=== PATIENT | male | born 1935 | race Caucasian/White ===

== ENCOUNTER 2016-08-11 11:17 | Emergency (ER) | payer OTHER ==
[~2016-08-11] VITALS: Ht 165.1 cm; Wt 82.9 kg
[~2016-08-11 11:17] MED LIST: ASPEC325 PO; CLB200 PO; LISI5TAB3 PO; LRT5 PO; METO100T7 PO; NTRGSL/4 UT
[2016-08-11 11:36] VITALS: Ht 165.1 cm; Wt 82.9 kg
[2016-08-11] MEDS ORDERED: MoRPHine SULFATE 4 MG/ML 1 ML CARP\\VIAL IV STA (12:25)
[2016-08-11] MEDS ORDERED: NITROGLYCERIN OINT 2% 1GM PACKET EXT STA (12:25)
[2016-08-11] MEDS ORDERED: ONDANSETRON INJ 2 MG/ML 2 ML VIAL IV STA (12:25)
[2016-08-11 12:30] LABS: URINE APPEARANCE CLEAR (CLEAR); URINE BILIRUBIN NEG (NEG); URINE COLOR YELLOW; URINE EPITHELIAL CELL AUTO 0-5 /lpf (0-5); URINE NITRITE NEG (NEG); URINE PH 6.5 (4.5-7.5); URINE SPECIFIC GRAVITY 1.003 (1.000-1.030); UROBILINOGEN NEG (NEG); ZZUR CULT IF INDIC CLEAN CATCH NO
[2016-08-11 12:36] LABS: MANUAL MICROSCOPIC REQUIRED? NO; REVIEW REQ? NO
[2016-08-11 12:39] LABS: BASO % 0.3 %; BASO ABS # 0.02 K/uL (0-0.2); COMPLETE YES; EOS % 1.1 %; HEMATOCRIT 35.1 % (42-52); IG% 0.3 %; LYMPH % 17.4 %; LYMPH ABS # 1.13 K/uL (1.2-3.4); MEAN CELL VOLUME 87.8 fL (80-100); MEAN CORPUSCULAR HEMOGLOBIN 29.8 pg (25-34); MEAN CORPUSCULAR HGB CONC 33.9 g/dl (32-36); MEAN PLATELET VOLUME 9.5 fL (7.4-10.4); MONO % 11.2 %; NEUT % 69.7 %; PLATELET COUNT 187 K/uL (130-400); WHITE BLOOD COUNT 6.51 K/uL (4.8-10.8)
[2016-08-11] MEDS ORDERED: NITROGLYCERIN OINT 2% 1GM PACKET ONE (12:40)
--- NOTE | 2016-08-11 12:41 | EMERGENCY ROOM VISIT NOTE ---
History First contact with patient: 12:13 (Brian Vargas PA-C) First contact with patient: 12:13 (Oren Flores M.D.) Chief Complaint: ABDOMINAL PAIN Stated Complaint: ABD PAIN History of Present Illness The patient is a 81 year old male who presents to the Emergency Room via private vehicle accompanied by with complaints of "abdominal pain". The patient states that he began with left upper/substernal abdominal pain on Monday of this week that was postprandial. He states that it is worse with ingestion of food, and is now on the sternal region. He notes he does have a history of heart vessel bypass, which was performed 2009 [facility]. He also notes that he has had a sensation of congestion in the ears, and was to see his family doctor Monday as well as yesterday for follow-up who recommended Mucinex. The patient also notes that he will have a lump like sensation in the epigastric region that is reducible. He currently would like something for pain, noting that it is a gnawing in nature. His blood pressure is also elevated, but he notes he took his blood pressure medication this morning. He denies any chest pain, shortness of breath, lower abdominal pain. (Brian Vargas PA-C) Review of Systems A complete 10-point Review of Systems was discussed with the patient, with pertinent positives and negatives listed in the History of Present Illness. All remaining Review of Systems questions can be considered negative unless otherwise specified. (Brian Vargas PA-C) Past Medical/Surgical History Medical Problems: (1) Localized, primary osteoarthritis of the lower leg (Oren Flores M.D.) Family History Diabetes, heart disease, cancer. (Brian Vargas PA-C) Social History Smoking Status: Former Smoker Social History: Patient lives at home with spouse, denies alcohol and tobacco use. (Brian Vargas PA-C) Current/Historical Medications Scheduled Aspirin (Aspir-81), 81 MG PO DAILY Lisinopril (Zestril), 10 MG PO BID Metoprolol Succ (Toprol Xl) (Toprol-Xl), 50 MG PO DAILY Pravastatin (Pravachol ), 20 MG PO QPM Scheduled PRN Ranitidine (Zantac), 150 MG PO BID PRN for UPSET STOMACH Allergies Coded Allergies: No Known Allergies (Verified Allergy, NONE, 11/15/08) Physical Exam Vital Signs Date Time Temp Pulse Resp B/P Pulse Ox O2 Delivery O2 Flow Rate FiO2 08/11/16 17:07 37.0 60 16 175/85 98 08/11/16 17:05 60 16 175/85 98 Room Air 08/11/16 16:27 60 16 181/87 98 Room Air 2.0 08/11/16 16:01 59 16 178/85 98 Room Air 2.0 08/11/16 15:12 61 18 178/89 96 Room Air 08/11/16 15:08 95 Nasal Cannula 2.0 08/11/16 14:13 60 18 188/116 95 Room Air 08/11/16 13:14 62 08/11/16 12:53 62 18 165/96 98 Nasal Cannula 2.0 08/11/16 11:36 37.0 64 20 186/81 97 Room Air (Oren Flores M.D.) Physical Exam VITAL SIGNS - Vital signs and nursing notes were reviewed. The patient currently is afebrile, he is hypertensive at 186/81, he is non-tachycardic and saturating well on room air 97%. GENERAL -81-year-old male appearing his stated age who is in no acute distress. The patient is lying in bed comfortably. He is nontoxic in appearance. Communicates well with provider and answers questions appropriately. SKIN - Without rashes. No petechial rashes. HEAD - NC/AT. EYES -Sclera anicteric. Palpebral conjunctiva pink and moist with no injection noted. EARS - No deformities of external structures noted on gross examination bilaterally. No pain elicited with palpation of the tragus bilaterally. External auditory canals without discharge or otorrhea. Tympanic membranes pearly [place] without retraction or bulging. No fluid or purulent material visualized behind the TM. Handle of malleus, umbo, cone of light, pars tensa/ flaccid all easily visualized. NOSE - Midline and without cyanosis. No epistaxis or purulent drainage noted. Septum midline without deviation or septal hematoma noted. MOUTH/OROPHARYNX - Without perioral cyanosis. Buccal mucosa pink and moist and without leukoplakia. Tongue midline with equal elevation of palate bilaterally. No tonsillar hypertrophy, erythema, or exudates noted. Fair dentition noted. NECK - Neck with FROM. Supple to palpation. No lymphadenopathy noted. No nuchal rigidity. LUNGS - Chest wall symmetric without accessory muscle use, intercostals retractions, or central cyanosis. Normal vesicular breath sounds CTA B/L. No wheezes, rales, or rhonchi appreciated. CARDIAC - RRR with S1/S2. No murmur, rubs, or gallops appreciated. ABDOMEN - Abdominal contour without pulsations or visible masses. BS normoactive all four quadrants. There is substernal/left upper quadrant abdominal tenderness upon palpation. No palpable masses, hepatosplenomegaly, or ascites noted. EXTREMITIES - No clubbing or peripheral cyanosis. No pretibial edema present. + 5/5 strength noted in UE/LE bilaterally. NEUROLOGIC - Cranial nerves II through XII grossly intact. Sensory intact to light touch throughout. PSYCH - A&Ox3 and cooperates fully with examiner. Pt is very pleasant and interacts well with examiner. After verifying consent, rectal exam was unremarkable. Hemoccult negative. (Brian Vargas, COURTNEY) Medical Decision & Procedures ER Provider Diagnostic Interpretation: CHEST ONE VIEW PORTABLE CLINICAL HISTORY: Chest pain dyspnea COMPARISON STUDY: 10/11/2011 FINDINGS: Mild cardiomegaly. Prior median sternotomy. Diaphragms smooth. Lungs are clear. IMPRESSION: Mild cardiomegaly. Otherwise negative study Electronically signed by: Jeremy Hron M.D. 08/11/2016 12:59 PM Dictated Date/Time: 08/11/2016 12:58 PM ABDOMEN AND PELVIS CT WITH IV CONTRAST CT DOSE: 743.60 mGycm HISTORY: Pain. Nausea. Left upper, upper quadrant abdominal pain, worse with eating TECHNIQUE: Multiaxial CT images of the abdomen and pelvis were performed following the use of intravenous contrast. COMPARISON STUDY: None. FINDINGS: Lung bases are clear. Several hepatic microcysts are present. Several small gallstones are present within the region of the gallbladder neck. Possible mild gastric wall thickening versus technical lack of distention. Very small hiatal hernia. Spleen is uniform. Bowel pattern within the abdomen and pelvis is nonobstructive. No significant abdominal pelvic or inguinal adenopathy. No free fluid within the pelvic cul-de-sac. Bladder is midline. Small bilateral renal calcifications which are nonobstructive. IMPRESSION: 1. Several small gallstones in the region of the gallbladder neck. 2. Several punctate nonobstructing renal calcifications. 3. Mild gastric wall thickening versus technical lack of distention. 4. Study is otherwise negative. Electronically signed by: Jeremy Horn M.D. 08/11/2016 2:14 PM Dictated Date/Time: 08/11/2016 2:09 PM (Brian Vargas, COURTNEY) Laboratory Results 08/11/16 12:15 Red Blood Count 4.00, Mean Corpuscular Volume 87.8, Mean Corpuscular Hemoglobin 29.8, Mean Corpuscular Hemoglobin Concent 33.9, Mean Platelet Volume 9.5, Neutrophils (%) (Auto) 69.7, Lymphocytes (%) (Auto) 17.4, Monocytes (%) (Auto) 11.2, Eosinophils (%) (Auto) 1.1, Basophils (%) (Auto) 0.3, Neutrophils # (Auto ) 4.54, Lymphocytes # (Auto) 1.13, Monocytes # (Auto) 0.73, Eosinophils # (Auto ) 0.07, Basophils # (Auto) 0.02 08/11/16 12:15 Test 08/11/16 11:44 08/11/16 12:15 08/11/16 15:45 Urine Color YELLOW Urine Appearance CLEAR (CLEAR) Urine pH 6.5 (4.5-7.5) Urine Specific [place] 1.003 (1.000-1.030) Urine Protein NEG (NEG) Urine Glucose (UA) NEG (NEG) Urine Ketones NEG (NEG) Urine Occult Blood TRACE (NEG) Urine Nitrite NEG (NEG) Urine Bilirubin NEG (NEG) Urine Urobilinogen NEG (NEG) Urine Leukocyte Esterase NEG (NEG) Urine WBC (Auto) 0 /hpf (0-5) Urine RBC (Auto) 0-4 /hpf (0-4) Urine Hyaline Casts (Auto) 0 /lpf (0-5) Urine Epithelial Cells (Auto) 0-5 /lpf (0-5) Urine Bacteria (Auto) NEG (NEG) White Blood Count 6.51 K/uL (4.8-10.8) Red Blood Count 4.00 M/uL (4.7-6.1) Hemoglobin 11.9 g/dL (14.0-18.0) Hematocrit 35.1 % (42-52) Mean Corpuscular Volume 87.8 fL (80-100) Mean Corpuscular Hemoglobin 29.8 pg (25-34) Mean Corpuscular Hemoglobin Concent 33.9 g/dl (32-36) Platelet Count 187 K/uL (130-400) Mean Platelet Volume 9.5 fL (7.4-10.4) Neutrophils (%) (Auto) 69.7 % Lymphocytes (%) (Auto) 17.4 % Monocytes (%) (Auto) 11.2 % Eosinophils (%) (Auto) 1.1 % Basophils (%) (Auto) 0.3 % Neutrophils # (Auto) 4.54 K/uL (1.4-6.5) Lymphocytes # (Auto) 1.13 K/uL (1.2-3.4) Monocytes # (Auto) 0.73 K/uL (0.11-0.59) Eosinophils # (Auto) 0.07 K/uL (0-0.5) Basophils # (Auto) 0.02 K/uL (0-0.2) RDW Standard Deviation 45.5 fL (36.4-46.3) RDW Coefficient of Variation 14.0 % (11.5-14.5) Immature Granulocyte % (Auto) 0.3 % Immature Granulocyte # (Auto) 0.02 K/uL (0.00-0.02) Prothrombin Time 11.5 SECONDS (9.0-12.0) Prothromb Time International Ratio 1.1 (0.9-1.1) Activated Partial Thromboplast Time 34.6 SECONDS (21.0-31.0) Partial Thromboplastin Ratio 1.3 Anion Gap 11.0 mmol/L (3-11) Est Creatinine Clear Calc Drug Dose 37.6 ml/min Estimated GFR () 49.5 Estimated GFR (Non- 42.7 BUN/Creatinine Ratio 13.9 (10-20) Calcium Level 9.3 mg/dl (8.5-10.1) Magnesium Level 2.4 mg/dl (1.8-2.4) Total Bilirubin 0.6 mg/dl (0.2-1) Aspartate Amino Transf (AST/SGOT) 18 U/L (15-37) Alanine Aminotransferase (ALT/SGPT) 16 U/L (12-78) Alkaline Phosphatase 74 U/L (45-117) Total Protein 7.6 gm/dl (6.4-8.2) Albumin 4.0 gm/dl (3.4-5.0) Globulin 3.6 gm/dl (2.5-4.0) Albumin/Globulin Ratio 1.1 (0.9-2) Lipase 155 U/L (73-393) Chemistry Specimen Hemolysis Bedside Troponin I 0.000 ng/ml (0-0.045) (Oren Flores M.D.) Medications Administered Medications (Trade) Dose Ordered Sig/Richard Route Start Time Stop Time Status Last Admin Dose Admin Morphine Sulfate (MoRPHine SULFATE INJ) 4 mg NOW STAT IV 08/11/16 12:25 08/11/16 12:30 DC 08/11/16 12:46 4 MG Ondansetron HCl (Zofran Inj) 4 mg NOW STAT IV 08/11/16 12:25 08/11/16 12:30 DC 08/11/16 12:46 4 MG Nitroglycerin (Nitroglycerin 2% Oint) 0.5 inch NOW STAT EXT 08/11/16 12:25 08/11/16 12:30 DC 08/11/16 12:46 0.5 INCH Morphine Sulfate (MoRPHine SULFATE INJ) 2 mg NOW STAT IV 08/11/16 13:55 08/11/16 13:57 DC 08/11/16 14:11 2 MG Oxycodone HCl (Roxicodone Immediate Rel 5MG Home Pack) 1 homepack UD STAT PO 08/11/16 16:27 08/11/16 16:28 DC 08/11/16 16:47 1 HOMEPACK (rOen Flores M.D.) Medical Decision Patient was seen and evaluated as above. After obtaining a thorough history and physical examination, the above workup was initiated. There was concern for abdominal etiologies, as well as cardiac particularly given the patient's past medical history. EKG performed today revealed normal sinus rhythm, with rebound mayelin block and when compared to EKG 2011, no significant change was noted. Today's EKG reveals rate of 70 bpm, without ectopy or ischemic change. CBC reveals no leukocytosis, slight anemia noted 11.9. A PTT was elevated at 34.6, CMP reveals BUN elevated and creatinine elevated, no electrolyte, or kidney abnormality. Point care troponin was negative 2, lipase was within normal limits. Urine reveals trace occult blood, otherwise unremarkable. Chest x-ray reveals mild cardiomegaly. CT of the abdomen and pelvis was obtained. Gallstones were noted. Patient was not tender in the right upper quadrant. Given the patient's past medical history of gastric ulcer, and recent NSAID use I do believe he likely has either a gastric ulcer, or gastritis. Patient was also personally evaluated by my attending. The patient will be discharged with Zantac, of which she already takes but only when necessary. They note they have inadequate supply, therefore a prescription will be written. He will take this twice daily. He was also given a short term supply of OxyIR for his pain. He was offered admission to the hospital but declined. 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 I do with this is reasonable, the patient is to have close follow-up with gastroenterology of which she is provided number to call first thing tomorrow as well as his family doctor regarding today's visit. They're fully educated upon the findings, particularly he was noted to be hypertensive but slightly decreased throughout his stay. He was experiencing abdominal pain which could correlate with this. He was thoroughly educated upon the risks of hypertension and is to follow up with his family doctor. He does currently take medication for this they were educated on these findings, were educated upon worrisome symptoms which to return, had questions answered prior to discharge, and was discharged home in good condition. In the evaluation and treatment of this patient following differential diagnoses were entertained: ACS, PE, dissection, gastritis, mesenteric ischemia , among others. (Brian Vargas, BLANCAC) Impression Primary Impression: Epigastric pain Additional Impression: Abdominal pain Departure Information Dispostion Home / Self-Care Condition GOOD Referrals Sergio Jiménez D.O. (PCP) Justin Savage M.D. Patient Instructions My [facility] Additional Instructions You have been treated in the Emergency Department your Abdominal Pain. Laboratory results and imaging studies have ruled out any emergent causes for your abdominal pain which would warrant admission or surgery. You have received pain medications that make it illegal for you to drive today or operate machinery. Your kidney function today was slightly abnormal, and your blood pressure was elevated. Please have these repeated with your family doctor. Please take the Zantac previously prescribed twice daily. You have been prescribed Oxy IR to be used for pain control. This is a narcotic medication. You cannot drive or consume alcohol while on this medicine. This medicine should only be used for pain that cannot be controlled with over-the- counter pain medicines. For pain control, you can use the following [id number] medicines (if >12 yo): - Regular strength (325mg/tab) Tylenol (acetaminophen) 2 tabs every 4-6 hours as needed. Do not exceed 12 tablets in a 24 hour period. Avoid taking more than 4 grams (4000 mg) of Tylenol per day. This includes any other sources of acetaminophen you may take on a regular basis. NO IBUPROFEN OR NSAIDS!! Drink plenty of water and stay well hydrated. As with any trip to the Emergency Department, you should follow-up with your Primary Care Provider from today's visit. You've the provided number for a GI specialist. Please call them first thing tomorrow morning. (Dr. Savage) Return to the emergency department if your symptoms persist despite treatment plan outlined above or if the following symptoms occur: increased fevers, chills , worsening nausea/vomiting, blood in your stool or urine. Problem Qualifiers Additional Impression: Abdominal pain Abdominal location: epigastric Qualified Codes: R10.13 - Epigastric pain
[2016-08-11] MEDS ORDERED: OPTIRAY 320 IV PRN (12:45)
[2016-08-11 12:50] LABS: INR 1.1 (0.9-1.1); PARTIAL THROMBOPLASTIN RATIO 1.3; PROTHROMBIN TIME (PATIENT) 11.5 SECONDS (9.0-12.0)
--- NOTE | 2016-08-11 13:01 | DIAGNOSTIC IMAGING REPORT ---
CHEST ONE VIEW PORTABLE CLINICAL HISTORY: Chest pain dyspnea COMPARISON STUDY: 10/11/2011 FINDINGS: Mild cardiomegaly. Prior median sternotomy. Diaphragms smooth. Lungs are clear. IMPRESSION: Mild cardiomegaly. Otherwise negative study Electronically signed by: Jeremy Horn M.D. 08/11/2016 12:59 PM Dictated Date/Time: 08/11/2016 12:58 PM
[2016-08-11 13:06] LABS: ALB/GLOB RATIO 1.1 (0.9-2); BUN/CREATININE RATIO 13.9 (10-20); CALCIUM 9.3 mg/dl (8.5-10.1); CREATININE 1.5 mg/dl (0.60-1.40); MAGNESIUM 2.4 mg/dl (1.8-2.4); POTASSIUM 4.2 mmol/L (3.5-5.1)
[2016-08-11] MEDS ORDERED: ZNTT/150 PO (13:19)
[2016-08-11] MEDS ORDERED: LISI-461 PO (13:21)
[2016-08-11] MEDS ORDERED: METO50TA7 PO (13:21)
[2016-08-11] MEDS ORDERED: PRAV20TA PO (13:21)
[2016-08-11] MEDS ORDERED: ASPI-232 PO (13:21)
[2016-08-11] MEDS ORDERED: MoRPHine SULFATE 2 MG/ML CARP IV STA (13:55)
--- NOTE | 2016-08-11 14:15 | DIAGNOSTIC IMAGING REPORT ---
ABDOMEN AND PELVIS CT WITH IV CONTRAST CT DOSE: 743.60 mGycm HISTORY: Pain. Nausea. Left upper, upper quadrant abdominal pain, worse with eating TECHNIQUE: Multiaxial CT images of the abdomen and pelvis were performed following the use of intravenous contrast. COMPARISON STUDY: None. FINDINGS: Lung bases are clear. Several hepatic microcysts are present. Several small gallstones are present within the region of the gallbladder neck. Possible mild gastric wall thickening versus technical lack of distention. Very small hiatal hernia. Spleen is uniform. Bowel pattern within the abdomen and pelvis is nonobstructive. No significant abdominal pelvic or inguinal adenopathy. No free fluid within the pelvic cul-de-sac. Bladder is midline. Small bilateral renal calcifications which are nonobstructive. IMPRESSION: 1. Several small gallstones in the region of the gallbladder neck. 2. Several punctate nonobstructing renal calcifications. 3. Mild gastric wall thickening versus technical lack of distention. 4. Study is otherwise negative. Electronically signed by: Jeremy Horn M.D. 08/11/2016 2:14 PM Dictated Date/Time: 08/11/2016 2:09 PM
[2016-08-11 15:08] VITALS: O2SAT 95
[2016-08-11] MEDS ORDERED: OXYCODONE IR HOME PACK PO STA (16:27)
--- NOTE | 2016-08-11 16:34 | EMERGENCY ROOM VISIT NOTE ---
ED Visit Note First contact with patient: 12:13 81-year-old male with mid abdominal pain was fully evaluated by Brian Chew. The patient's prior history of ulcer disease. Imaging studies do reveal gallbladder stones but he is nontender over the right upper quadrant. The patient most likely has some gastritis or peptic/gastric ulcer disease. The patient will be maintained on ranitidine. He may need a proton pump inhibitor. The patient will need to be followed by family physician possibly gastroenterology.
[2016-08-11 17:07] VITALS: BP 175/85; PULSE 60; TEMP 37; O2SAT 98
== END 2016-08-11 17:08 | disposition home or self-care (01) ==
LOC: C.EDB 11:18
DX: R10.13 Epigastric pain (principal); R10.9 Unspecified abdominal pain; M19.90 Unspecified osteoarthritis, unspecified site; Z79.82 Long term (current) use of aspirin; Z83.3 Family history of diabetes mellitus; Z82.49 Family history of ischemic heart disease and other diseases of the circulatory system; Z87.891 Personal history of nicotine dependence

== ENCOUNTER 2016-08-14 08:24 | Emergency (ER) | payer OTHER ==
[~2016-08-14] VITALS: Ht 165.1 cm; Wt 80.3 kg
[~2016-08-14 08:24] MED LIST changes: -ASPEC325 PO; +ASPI-232 PO; -CLB200 PO; +LISI-461 PO; -LISI5TAB3 PO; -LRT5 PO; -METO100T7 PO; +METO50TA7 PO; -NTRGSL/4 UT; +PRAV20TA PO; +ZNTT/150 PO
[2016-08-14 08:27] VITALS: TEMP 36.5; Ht 165.1 cm; Wt 80.3 kg
[2016-08-14] MEDS ORDERED: SODIUM CHLORIDE 0.9% 1000ML 1,000 ML IV STA (08:37)
--- NOTE | 2016-08-14 08:54 | DIAGNOSTIC IMAGING REPORT ---
SINGLE VIEW CHEST CLINICAL HISTORY: Weakness. Change in mental status. FINDINGS: An AP, portable, upright chest radiograph is compared to study dated 08/11/2016. The examination is degraded by portable technique and apical lordotic positioning. The patient is status post midline sternotomy. The heart is enlarged and there is atherosclerotic calcification of the thoracic aorta. The pulmonary vasculature is noncongested. The lungs and pleural spaces are clear. No pneumothorax is seen. The skeletal structures are osteopenic. Degenerative changes noted throughout the thoracic spine. IMPRESSION: Cardiomegaly with no acute cardiopulmonary abnormality. No significant change from 08/11/2016. Electronically signed by: Juan Carlos Sims M.D. 08/14/2016 8:53 AM Dictated Date/Time: 08/14/2016 8:52 AM
[2016-08-14 09:18] LABS: BASO % 0.3 %; BASO ABS # 0.02 K/uL (0-0.2); COMPLETE YES; EOS % 2.7 %; HEMATOCRIT 37.4 % (42-52); IG% 0.5 %; LYMPH % 13.7 %; LYMPH ABS # 0.87 K/uL (1.2-3.4); MEAN CELL VOLUME 88.6 fL (80-100); MEAN CORPUSCULAR HEMOGLOBIN 29.4 pg (25-34); MEAN CORPUSCULAR HGB CONC 33.2 g/dl (32-36); MONO % 10.6 %; NEUT % 72.2 %; PLATELET COUNT 181 K/uL (130-400); RED BLOOD COUNT 4.22 M/uL (4.7-6.1); WHITE BLOOD COUNT 6.33 K/uL (4.8-10.8)
[2016-08-14 09:31] LABS: INR 1.1 (0.9-1.1); PARTIAL THROMBOPLASTIN RATIO 1.3; PROTHROMBIN TIME (PATIENT) 11.4 SECONDS (9.0-12.0)
[2016-08-14 09:37] LABS: ALT/SGPT 15 U/L (12-78); BLOOD UREA NITROGEN 20 mg/dl (7-18); BUN/CREATININE RATIO 13.3 (10-20); CALCIUM 9.5 mg/dl (8.5-10.1); CARBON DIOXIDE 25 mmol/L (21-32); CHLORIDE 103 mmol/L (98-107); GLUCOSE 100 mg/dl (70-99); MAGNESIUM 2.7 mg/dl (1.8-2.4); POTASSIUM 4.4 mmol/L (3.5-5.1); SODIUM 138 mmol/L (136-145)
[2016-08-14 09:45] LABS: ALKALINE PHOSPHATASE 69 U/L (45-117); AST/SGOT 13 U/L (15-37); CKMB/CK RATIO 2.8 (0-3.0)
[2016-08-14 10:09] VITALS: O2SAT 98
--- NOTE | 2016-08-14 10:38 | EMERGENCY ROOM VISIT NOTE ---
History Report prepared by Shorty: Heidi Cancino Under the Supervision of: Dr. Gurdeep Dotson D.O. First contact with patient: 08:33 Chief Complaint: ABDOMINAL PAIN Stated Complaint: BLEEDING ULCER Nursing Triage Summary: Triage Note: Pt reports he feels weak and dizzy. pt reports "i think i have a bleeding ulcer, i was here last week." pt reports he has blood in his stool since yesterday." History of Present Illness The patient is a 81 year old male who presents to the Emergency Room with complaints of episodic black stool since yesterday. He also complains of dizziness. He has not lost consciousness. The patient was in the emergency room 3 days ago for abdominal pain and was discharged after an unrevealing work-up. He was treated with Morphine in the ED and was sent home with an Oxycodone homepack. The patient states that he was slightly constipated until yesterday when he had a large bowel movement after taking Milk of Magnesia. He was concerned that he had a bleeding ulcer because his stool was black, as he has had bleeding gastric ulcers in the past. Since then, he has been feeling dizzy. Per patient's , he did take Pepto Bismol 2 days ago. He does not take iron supplements. Denies abdominal pain or other complaints. He takes baby aspirin. Source of History: patient Onset: yesterday Position: other (GI) Quality: other (black) Timing: other (episodic) Associated Symptoms: No LOC, No abdominal pain Note: Other symptoms: dizziness Review of Systems See HPI for pertinent positives & negatives. A total of 10 systems reviewed and were otherwise negative. Past Medical & Surgical Medical Problems: (1) Localized, primary osteoarthritis of the lower leg Family History Noncontributory secondary to age. Social History Smoking Status: Never Smoker Marital Status: Housing Status: lives with significant other Occupation Status: retired Current/Historical Medications Scheduled Aspirin (Aspir-81), 81 MG PO DAILY Lisinopril (Zestril), 10 MG PO BID Metoprolol Succ (Toprol Xl) (Toprol-Xl), 50 MG PO DAILY Pravastatin (Pravachol ), 20 MG PO QPM Scheduled PRN Ranitidine (Zantac), 150 MG PO BID PRN for UPSET STOMACH Allergies Coded Allergies: No Known Allergies (Verified , NONE, 08/14/16) Physical Exam Vital Signs Date Time Temp Pulse Resp B/P Pulse Ox O2 Delivery O2 Flow Rate FiO2 08/14/16 10:09 65 17 184/96 98 Room Air 08/14/16 09:20 69 16 177/128 71 173/92 73 155/90 08/14/16 09:01 58 16 150/59 98 Room Air 08/14/16 08:59 72 08/14/16 08:59 59 08/14/16 08:27 36.5 72 18 168/82 97 Room Air Physical Exam CONSTITUTIONAL/VITAL SIGNS: Reviewed / noted above. GENERAL: Non-toxic in appearance. INTEGUMENTARY: Warm, dry, and Dante. HEAD: Normocephalic. EYES: without scleral icterus or trauma. ENT/OROPHARYNX: clear and moist. LYMPHADENOPATHY/NECK: Is supple without lymphadenopathy or meningismus. RESPIRATORY: Lungs clear and equal. CARDIOVASCULAR: Regular rate and rhythm. GI/ABDOMEN: Soft and nontender. No organomegaly or pulsatile mass. No rebound or guarding. Normal bowel sounds. RECTAL: Guaiac negative brown stool. EXTREMITIES: Warm and well perfused. BACK: No CVA tenderness. NEUROLOGICAL: Intact without focal deficits. PSYCHIATRIC: normal affect. MUSCULOSKELETAL: Normally developed with good muscle tone. Medical Decision & Procedures ER Provider Diagnostic Interpretation: Radiology results as stated below per my review and radiologist interpretation: SINGLE VIEW CHEST CLINICAL HISTORY: Weakness. Change in mental status. FINDINGS: An AP, portable, upright chest radiograph is compared to study dated 08/11/2016. The examination is degraded by portable technique and apical lordotic positioning. The patient is status post midline sternotomy. The heart is enlarged and there is atherosclerotic calcification of the thoracic aorta. The pulmonary vasculature is noncongested. The lungs and pleural spaces are clear. No pneumothorax is seen. The skeletal structures are osteopenic. Degenerative changes noted throughout the thoracic spine. IMPRESSION: Cardiomegaly with no acute cardiopulmonary abnormality. No significant change from 08/11/2016. Electronically signed by: Juan Carlos Sims M.D. 08/14/2016 8:53 AM Dictated Date/Time: 08/14/2016 8:52 AM Laboratory Results 08/14/16 08:50 Red Blood Count 4.22, Mean Corpuscular Volume 88.6, Mean Corpuscular Hemoglobin 29.4, Mean Corpuscular Hemoglobin Concent 33.2, Mean Platelet Volume 9.0, Neutrophils (%) (Auto) 72.2, Lymphocytes (%) (Auto) 13.7, Monocytes (%) (Auto) 10.6, Eosinophils (%) (Auto) 2.7, Basophils (%) (Auto) 0.3, Neutrophils # (Auto ) 4.57, Lymphocytes # (Auto) 0.87, Monocytes # (Auto) 0.67, Eosinophils # (Auto ) 0.17, Basophils # (Auto) 0.02 08/14/16 08:50 Test 08/14/16 08:50 White Blood Count 6.33 K/uL (4.8-10.8) Red Blood Count 4.22 M/uL (4.7-6.1) Hemoglobin 12.4 g/dL (14.0-18.0) Hematocrit 37.4 % (42-52) Mean Corpuscular Volume 88.6 fL (80-100) Mean Corpuscular Hemoglobin 29.4 pg (25-34) Mean Corpuscular Hemoglobin Concent 33.2 g/dl (32-36) Platelet Count 181 K/uL (130-400) Mean Platelet Volume 9.0 fL (7.4-10.4) Neutrophils (%) (Auto) 72.2 % Lymphocytes (%) (Auto) 13.7 % Monocytes (%) (Auto) 10.6 % Eosinophils (%) (Auto) 2.7 % Basophils (%) (Auto) 0.3 % Neutrophils # (Auto) 4.57 K/uL (1.4-6.5) Lymphocytes # (Auto) 0.87 K/uL (1.2-3.4) Monocytes # (Auto) 0.67 K/uL (0.11-0.59) Eosinophils # (Auto) 0.17 K/uL (0-0.5) Basophils # (Auto) 0.02 K/uL (0-0.2) RDW Standard Deviation 46.1 fL (36.4-46.3) RDW Coefficient of Variation 14.2 % (11.5-14.5) Immature Granulocyte % (Auto) 0.5 % Immature Granulocyte # (Auto) 0.03 K/uL (0.00-0.02) Prothrombin Time 11.4 SECONDS (9.0-12.0) Prothromb Time International Ratio 1.1 (0.9-1.1) Activated Partial Thromboplast Time 33.5 SECONDS (21.0-31.0) Partial Thromboplastin Ratio 1.3 Anion Gap 10.0 mmol/L (3-11) Est Creatinine Clear Calc Drug Dose 37.1 ml/min Estimated GFR () 49.5 Estimated GFR (Non- 42.7 BUN/Creatinine Ratio 13.3 (10-20) Calcium Level 9.5 mg/dl (8.5-10.1) Magnesium Level 2.7 mg/dl (1.8-2.4) Total Bilirubin 0.6 mg/dl (0.2-1) Direct Bilirubin 0.1 mg/dl (0-0.2) Aspartate Amino Transf (AST/SGOT) 13 U/L (15-37) Alanine Aminotransferase (ALT/SGPT) 15 U/L (12-78) Alkaline Phosphatase 69 U/L (45-117) Total Creatine Kinase 72 U/L (39-308) Creatine Kinase MB 2.0 ng/ml (0.5-3.6) Creatine Kinase MB Ratio 2.8 (0-3.0) Troponin I < 0.015 ng/ml (0-0.045) Total Protein 7.5 gm/dl (6.4-8.2) Albumin 4.0 gm/dl (3.4-5.0) Lipase 169 U/L (73-393) Thyroid Stimulating Hormone (TSH) 3.600 uIu/ml (0.300-4.500) Laboratory results as stated above per my review. Medications Administered Medications (Trade) Dose Ordered Sig/Richard Route Start Time Stop Time Status Last Admin Dose Admin Sodium Chloride (Nss 1000ml) 1,000 ml @ 250 mls/hr Q4H STAT IV 08/14/16 08:37 08/14/16 12:36 08/14/16 09:22 250 MLS/HR ECG Indication: other (dizziness) Rate (beats per minute): 64 Rhythm: sinus rhythm Findings: PAC, RBBB, other (no acute injury) ED Course 0836: Previous medical records were reviewed. The patient was evaluated in room A10. A complete history and physical examination was performed. Ordered NSS 1000 ml @ 250 mls/hr IV. 1040: On reevaluation, the patient is feeling better. I discussed the results and findings with the patient. He verbalized agreement of the treatment plan. The patient was discharged home. Medical Decision Differential includes acute coronary syndrome, myocardial infarction, CVA, TIA, anemia, infection, pneumonia, UTI, pyelonephritis, poor nutrition, dehydration, electrolyte disturbance,hypoglycemia. This is an 81-year-old male who presents to the ED with a chief complaint of black stools and dizziness this morning. The patient was concerned about a bleeding ulcer. This morning he felt lightheaded and came in for evaluation. He states that he was here a few days ago for similar symptoms. He has history of a bleeding gastric ulcer and thought that the black stools might be related to this. He has no other specific complaints. His vital signs are stable. His physical exam was normal. Guaiac testing of the stool revealed a dark brown stool that was guaiac negative. CBC reveals a hemoglobin of 12.4. This is better than the 11.93 days ago. BUN is 20, creatinine is 1.5. Troponin is negative. TSH is normal. Chest x-ray was negative for acute disease. EKG shows a sinus rhythm at a rate of 64 with PACs. Right bundle branch block. The patient was told results the test. Vital signs were not orthostatic. He is felt to be stable for discharge. Impression Primary Impression: Light-headed feeling Scribe Attestation The scribe's documentation has been prepared under my direction and personally reviewed by me in its entirety. I confirm that the note above accurately reflects all work, treatment, procedures, and medical decision making performed by me. Departure Information Dispostion Home / Self-Care Referrals Sergio Jiménez D.O. (PCP) Patient Instructions My [facility] Additional Instructions Follow-up with your doctor for further care and evaluation in 1-2 days. Return to the emergency department for worsening or new symptoms or any concerns. You have been examined and treated today on an emergency basis only. This is not a substitute for, or an effort to provide, complete comprehensive medical care. It is impossible to recognize and treat all injuries or illnesses in a single emergency department visit. It is therefore important that you follow up closely with your doctor. Call as soon as possible for an appointment.
[2016-08-14 10:46] VITALS: BP 172/85; PULSE 68
== END 2016-08-14 10:55 | disposition home or self-care (01) ==
LOC: C.EDB 08:27 → C.EDA 10:55
DX: R42 Dizziness and giddiness (principal); R19.5 Other fecal abnormalities; I49.1 Atrial premature depolarization; I45.10 Unspecified right bundle-branch block; R10.9 Unspecified abdominal pain; Z79.82 Long term (current) use of aspirin; Z79.899 Other long term (current) drug therapy